=== PATIENT | female | born 1975 | race Caucasian/White ===

== ENCOUNTER 2023-05-25 12:30 | Outpatient (AMB) | payer OTHER, SELFPAY ==
--- NOTE | 2023-05-25 12:41 | AM.OFFWIN_ITS ---
Intake Vital Signs 05/25/23 12:44 BP 100/70 Blood Pressure Location Lt brachial Position Sitting Pulse 96 Pulse Source Pulse Oximeter Temp 98.2 F Temp Source Oral Pulse Oximetry (%) 98 Oxygen Delivery Method Room Air Intake Visit Reasons: Sore throat Intake Note: Pt is here today c/o sore throat x2days Patient Tobacco Use Status: Never used Tobacco Allergies No Known Allergies Allergy (Unverified 05/25/23 12:59) Medication List - Last Reconciled 05/25/23 by Hien Fletcher CNP amitriptyline 100 mg PO BEDTIME econazole 1% appl topical BID escitalopram oxalate 10 mg PO DAILY ferrous sulfate 325 mg PO DAILY hydroxyzine HCl 25 mg PO QID lisinopril 2.5 mg PO DAILY loratadine 10 mg PO DAILY magnesium oxide 400 mg PO DAILY minoxidil 1.25 mg PO DAILY omeprazole 40 mg PO DAILY ondansetron HCl 4 mg PO Q8H PRN sumatriptan succinate 0 mg PO topiramate 50 mg PO BID vitamin B complex 1 cap PO DAILY HPI HPI Comments History of Present Illness Details 47-year-old female presents today for sick visit, complaining of sore throat x2 days. She does report history of strep throat, difficulty swallowing due to throat pain. She denies fever, chills, headache, CP, SOB, abdominal pain, nausea, vomiting, changes in bowels or bladder. [facility] Social History Patient Tobacco Use Status: Never used Tobacco Review of Systems Const All systems reviewed & are unremarkable except as noted in HPI and below Physical Exam Vital Signs: Last Vital Signs Temp 98.2 F 05/25/23 12:44 Pulse 96 05/25/23 12:44 BP 100/70 05/25/23 12:44 Pulse Ox 98 05/25/23 12:44 Oxygen Delivery Method Room Air 05/25/23 12:44 Const General: healthy appearing and no acute distress Nutritional Appearance: well nourished Orientation/consciousness: patient oriented x3 Limitations: no limitations HEENT Head: Yes normocephalic and Yes atraumatic Ears: hearing grossly normal bilaterally and TM's normal bilaterally Mouth: moist mucous membranes Throat: Yes posterior oropharynx abnormal (erythematous w/ white papules ) Neck Neck: Yes no meningeal signs and Yes lymphadenopathy (bilateral submandibular ) Resp Effort & Inspection: normal respiratory effort, no cough, no respiratory distress and not tachypneic Auscultation: clear to auscultation bilaterally Cardio Rate: regular rate Rhythm: regular rhythm Heart sounds: S1 normal heart sound present and S2 normal heart sound present Peripheral pulses: Peripheral pulses 2+ throughout GI Inspection: Yes normal to inspection Palpation (GI): Soft to palpation and nontender Auscultation: normal bowel sounds Neuro General: patient oriented x3, gait normal, moves all extremities and no meningeal signs Cranial nerves: No Ability to bilaterally rotate head present Extrem General: Yes normal to inspection, Yes capillary refill normal and Yes no clubbing, cyanosis or edema Psych Appearance: well kempt Mental Status: mental status grossly normal Speech and movement: Normal speech and movement present Affect: normal affect Attitude: cooperative Results AMB Rapid Strep AMB Rapid Strep Negative Last Edit by Laurita Maza CMA on 05/25/23 12:52 Results Reviewed Results Reviewed: Laboratory Last Values Strep Scn Rapid Clinic Negative 05/25/23 12:49 Assessment & Plan Assessment & Plan (1) Sore throat: Code(s): J02.9 - Acute pharyngitis, unspecified Plan: 47-year-old female seen today for complaint of sore throat and difficulty swallowing due to pain. She does have a history of strep throat. Rapid strep negative, Binax[facility] rapid covid test negative posterior orophyarngeal erythematous w/ white papules; +bilateral submandibular lymphadenopathy Will treat with PCN 500 mg po bid x 7 days, encouraged to take w/ food. Warm salt water gargles, cool liquids, jello and popsicles Return to office for worsening or unresolved symptoms Orders: Orders [facility] Covid-19 Ag Today J02.9 - Acute pharyngitis, unspecified AMB Rapid Strep Screen Today Z13.9 - Encounter for screening, unspecified AMB Rapid Strep Screen Today J02.9 - Acute pharyngitis, unspecified, Z13.9 - Encounter for screening, unspecified Medications: New penicillin V potassium 500 mg PO BID 14 tabs 0RF J02.0 - Streptococcal pharyngitis, J02.9 - Acute pharyngitis, unspecified Coding Level of Care Code Est Pt Level 3 (13709) Diagnoses Sore throat J02.9
[2023-05-25 12:44] VITALS: BP 100/70; PULSE 96; TEMP 36.8; O2SAT 98
== END 2023-05-25 13:56 | disposition home or self-care (01) ==
PROVIDERS: PCP Internal Medicine; Visit Provider Nurse Practitioner Acute Care
DX: J02.9 Acute pharyngitis, unspecified (principal)
CPT/HCPCS: 87880; 99051; 99213

== ENCOUNTER 2023-05-25 13:20 | Outpatient (REF) | payer OTHER, SELFPAY ==
[2023-05-25 13:42] LABS: Binax Internal Control QC Valid; Binax Now Covid-19 Ag Negative (Negative); Binax Performed by: PAULP
== END 2023-05-25 13:21 | disposition home or self-care (01) ==
LOC: HO.HMGCLDS 13:20
PROVIDERS: PCP Internal Medicine; Visit Provider Nurse Practitioner Acute Care
DX: J02.9 Acute pharyngitis, unspecified (principal); Z20.822 Contact with and (suspected) exposure to COVID-19
CPT/HCPCS: 87811; C9803

== ENCOUNTER 2025-01-07 15:06 | Emergency (ER) | payer OTHER, SELFPAY ==
--- NOTE | ~2025-01-07 | CT_ITS ---
CLINICAL HISTORY: headache CT head without contrast Comparison: None Findings: No intra-axial mass, midline shift, hydrocephalus, or acute hemorrhage. No significant atrophy-like change or white matter disease. Large mucous retention cyst within the left maxillary sinus. No air-fluid levels. The orbits are within normal limits. No skull fracture. IMPRESSION: 1. No acute intracranial findings. This document has been electronically signed by: Casandra Becerril MD on 01/07/2025 17:08:23
[2025-01-07 15:56] VITALS: BP 126/84; PULSE 81; RESP 16; TEMP 36.8; O2SAT 100; BMI 22.9
--- NOTE | 2025-01-07 15:57 | ED_ITS ---
HPI - Headache General Chief Complaint: Headache Stated Complaint: headache,head numbness Time Seen by Provider: 01/07/25 20:35 Source: patient Mode of arrival: ambulatory Limitations: no limitations History of Present Illness ED Provider: HPI Narrative: Patient's history of migraine headaches in the past noticed sharp shooting pain in the left temporal occipital area for last 2 days with sound sensitivity no fever no chills no head injury no neck pain had slight nausea no vomiting Related Data Home Medications ?Medication ?Instructions ?Recorded ?Confirmed amitriptyline 100 mg tablet 100 mg PO BEDTIME 05/25/23 econazole nitrate 1 % topical cream appl topical BID 05/25/23 escitalopram oxalate 10 mg tablet 10 mg PO DAILY 05/25/23 ferrous sulfate 325 mg (65 mg 325 mg PO DAILY 05/25/23 iron) tablet,delayed release hydroxyzine HCl 25 mg tablet 25 mg PO QID 05/25/23 lisinopril 2.5 mg tablet 2.5 mg PO DAILY 05/25/23 loratadine 10 mg tablet 10 mg PO DAILY 05/25/23 magnesium oxide 400 mg (241.3 mg 400 mg PO DAILY 05/25/23 magnesium) tablet minoxidil 2.5 mg tablet 1.25 mg PO DAILY 05/25/23 omeprazole 40 mg capsule,delayed 40 mg PO DAILY 05/25/23 release ondansetron HCl 4 mg tablet 4 mg PO Q8H PRN nausea 05/25/23 sumatriptan succinate 100 mg tablet 0 mg PO 05/25/23 topiramate 50 mg tablet 50 mg PO BID 05/25/23 vitamin B complex 1 cap PO DAILY 05/25/23 Previous Rx's ?Medication ?Instructions ?Recorded penicillin V potassium 500 mg 500 mg PO BID #14 tabs 05/25/23 tablet [id number]-[id number]-fclfysuw 1 tab PO Q6H PRN haeadace #20 tabs 01/07/25 50 mg-325 mg-40 mg tablet Allergies Allergy/AdvReac Type Severity Reaction Status Date / Time No Known Allergies Allergy Verified 01/07/25 15:59 Review of Systems 2 Review of Systems: Yes all other systems are reviewed and are negative PMFSH Social History Social History Patient Tobacco Use Status: Never used Tobacco Smoked in Last 30 Days: No Use of substances other than those prescribed or required for medical reasons: Yes Substance Use Type: Marijuana Substance Use Frequency: Daily Last Used Substance: Hours (ago) Any prior treatment program specific to substance use: No Advance Directives: No Advance Directives Information Provided: Yes Do you have a plan to hurt others: No Plan Patient : No Physical Exam 2 Vital Signs: Vital Signs: Last Vital Signs Temp 98.1 F 01/07/25 21:57 Pulse 66 01/07/25 21:57 Resp 16 01/07/25 21:57 BP 128/78 01/07/25 21:57 Pulse Ox 98 01/07/25 21:57 O2 Del Method Room Air 01/07/25 21:57 BMI result Body Mass Index 22.9 Appearance: Alert. Oriented X3. No acute distress. Eyes: No pallor or icterus HEENT: Pharynx normal. Oral Mucosa moist no left temporal artery tenderness, diffuse left-sided scalp tenderness no rash Neck: Normal inspection. Neck supple. CVS: Normal heart rate and rhythm. Pulses normal. Respiratory: No respiratory distress. Equal air entry bilateral, no wheezing/rales/rhonchi Abdomen: Soft and nontender. Bowel sounds are present, no mass palpable, no CVA tenderness Skin: Skin warm and dry. Normal skin color. Normal skin turgor. Extremities: No lower extremity edema. No calf tenderness Neuro: Oriented X 3. No motor deficit. No sensory deficit.No cerebellar signs , cranial nerves II-XII intact Course Course Course Narrative: This is an RME: Additional HPI, ROS, PE not included below will be deferred to primary provider. RME assessment and note performed by: Sury Zepeda PA-C This is [id number]-female, with a hx of migraines, thyroidectomy in 2023, HTN, HLD, who presents to the ER with complaints of headache. Reports that she has sensitivity to her scalp, and has had intermittent sharp sensation on the left side of her scalp. Denies history of similar symptoms. She is neurologically intact. Plan: Labs, CT head Medications Administered Discontinued Medications Generic Name Dose Route Start Last Admin Trade Name Freq PRN Reason Stop Dose Admin Acetaminophen/Butalbital/Caffeine 1 tab 01/07/25 21:01 01/07/25 21:10 Butalb/Acetamin/Caff 50/325/40 Tablet PO 01/07/25 21:02 1 tab ONCE ONE Administration Medical Decision Making Medical Decision Making MDM Narrative: Patient with left temporal headache no tenderness at temporal artery no rash CT scan negative labs are stable normal sed rate likely has a complex migraine headache will prescribe Fioricet Lab Data MDM Lab Attestation statement: I reviewed the patient's lab results. 01/07/25 16:54 01/07/25 16:54 Labs: Lab Results 01/07/25 Range/Units 16:54 WBC 7.9 (4.8-10.8) X10*3/uL RBC 4.61 (4.20-5.50) X10*6/uL Hgb 14.5 (12.0-16.0) g/dl Hct 41.9 (37.0-47.0) % MCV 90.9 (80.0-98.0) fL MCH 31.5 (27.0-33.0) pg MCHC 34.6 (31.0-35.0) g/dl RDW 12.6 (11.0-16.0) % Plt Count 382 (160-400) X10*3/uL MPV 9.7 (9.4-12.3) fL Immature Gran % (Auto) 0.4 (0.0-0.4) % Neut % (Auto) 56.5 (45-73) % Lymph % (Auto) 29.3 (20-40) % [place] % (Auto) 11.1 H (2-11) % Eos % (Auto) 1.9 (0-4) % Baso % (Auto) 0.8 (0-2) % Lymph # (Auto) 2.3 (1.2-4.9) X10*3/uL [place] # (Auto) 0.9 (0.1-1.2) X10*3/uL Eos # (Auto) 0.2 (0.0-0.4) X10*3/uL Baso # (Auto) 0.1 (0.0-0.2) X10*3/uL Abs Immat Gran (auto) 0.03 (0.00-0.03) X10*3/uL Absolute Neuts (auto) 4.5 (2.0-8.3) x10*3/uL Absolute Nucleated RBC 0.000 (0.0-0.012) X10*3/uL Nucleated RBC % (auto) 0.0 (0.0-0.2) /100WBC ESR 9 (0-20) MM/HR Sodium 141 (135-145) mmol/L Potassium 3.7 (3.3-5.1) mmol/L Chloride 111 H (96-108) mmol/L Carbon Dioxide 23 (22-29) mmol/L Anion Gap 11 L (12-20) BUN 11 (9-16) mg/dL Creatinine 0.93 (0.5-1.4) mg/dL Estim Creat Clear Calc 63.8 Estimated GFR > 60 Random Glucose 94 (60-115) mg/dL Calcium 9.2 (8.4-10.2) mg/dL Total Bilirubin 0.2 (0.0-1.0) mg/dL Direct Bilirubin < 0.2 (0.0-0.5) mg/dL AST 18 (5-31) U/L ALT 14 (0-31) U/L Alkaline Phosphatase 54 (39-117) U/L C-Reactive Protein 0.12 (< or = 0.50) mg/dL Total Protein 7.7 (6.5-8.0) g/dL Albumin 4.0 (3.5-5.0) g/dL Independent Interpretation I performed an independent interpretation of an: CT Scan Radiology Impression Discussion of test interpretation with radiology: I have reviewed the radiologist's reading. Radiologist Impression: NAD Discharge Plan Discharge Clinical Impression: Migraine Patient Disposition: Home, Self-Care Instructions: Migraine Headache (ED) Additional Instructions: Likely have complex migraine headache Take Fioricet as needed for headache Follow up with your PCP Prescriptions: New ilwoomvfka-fbetvgaaofkoq-crhn 50-325-40 mg tablet 1 tab PO Q6H PRN (Reason: haeadace) Qty: 20 0RF No Action ferrous sulfate 325 mg (65 mg iron) tablet,delayed release (DR/EC) 325 mg PO DAILY minoxidil 2.5 mg tablet 1.25 mg PO DAILY loratadine 10 mg tablet 10 mg PO DAILY sumatriptan succinate 100 mg tablet 0 mg PO omeprazole 40 mg capsule,delayed release(DR/EC) 40 mg PO DAILY hydroxyzine HCl 25 mg tablet 25 mg PO QID magnesium oxide 400 mg (241.3 mg magnesium) tablet 400 mg PO DAILY vitamin B complex Capsule 1 cap PO DAILY lisinopril 2.5 mg tablet 2.5 mg PO DAILY topiramate 50 mg tablet 50 mg PO BID escitalopram oxalate 10 mg tablet 10 mg PO DAILY amitriptyline 100 mg tablet 100 mg PO BEDTIME ondansetron HCl 4 mg tablet 4 mg PO Q8H PRN (Reason: nausea) econazole nitrate 1 % cream topical BID penicillin V potassium 500 mg tablet 500 mg PO BID Qty: 14 0RF Interventions: ED Discharge Assessment Last Done: 01/07/25 22:05 Print Language: Panamanian
[2025-01-07 17:03] LABS: MANUAL DIFF FLAG NO
[2025-01-07 17:14] LABS: Basophils Absolute Auto 0.1 X10*3/uL (0.0-0.2); Basophils Percent Auto 0.8 % (0-2); Eosinophils Absolute Auto 0.2 X10*3/uL (0.0-0.4); Eosinophils Percent Auto 1.9 % (0-4); Hematocrit 41.9 % (37.0-47.0); Hemoglobin 14.5 g/dl (12.0-16.0); Imm Gran Abs Auto 0.03 X10*3/uL (0.00-0.03); Imm Gran Pct Auto 0.4 % (0.0-0.4); Lymphocytes Absolute Auto 2.3 X10*3/uL (1.2-4.9); Lymphocytes Percent Auto 29.3 % (20-40); Mean Corpuscular HGB Conc 34.6 g/dl (31.0-35.0); Mean Corpuscular Hemoglobin 31.5 pg (27.0-33.0); Mean Corpuscular Volume 90.9 fL (80.0-98.0); Mean Platelet Volume 9.7 fL (9.4-12.3); Monocytes Absolute Auto 0.9 X10*3/uL (0.1-1.2); Monocytes Percent Auto 11.1 % (2-11); Neutrophils Absolute Auto 4.5 x10*3/uL (2.0-8.3); Neutrophils Percent Auto 56.5 % (45-73); Platelet Count 382 X10*3/uL (160-400); Red Blood Count 4.61 X10*6/uL (4.20-5.50); Red Cell Distribution Width 12.6 % (11.0-16.0); White Blood Count 7.9 X10*3/uL (4.8-10.8)
[2025-01-07 17:36] LABS: Alanine Aminotransferase 14 U/L (0-31); Alkaline Phosphatase 54 U/L (39-117); Anion Gap 11 (12-20); Aspartate Amino Transferase 18 U/L (5-31); Bilirubin Direct < 0.2 mg/dL (0.0-0.5); Bilirubin Total 0.2 mg/dL (0.0-1.0); Blood Urea Nitrogen 11 mg/dL (9-16); C Reactive Protein 0.12 mg/dL (< or = 0.50); Calcium 9.2 mg/dL (8.4-10.2); Carbon Dioxide 23 mmol/L (22-29); Chloride 111 mmol/L (96-108); Creatinine Clr Calc Pharmacy 63.8; Estimated Glomerular Filt Rate > 60; Glucose Random 94 mg/dL (60-115); Potassium 3.7 mmol/L (3.3-5.1); Sodium 141 mmol/L (135-145); Total Protein 7.7 g/dL (6.5-8.0)
[2025-01-07 18:36] LABS: Erythrocyte Sedimentation Rate 9 MM/HR (0-20)
[2025-01-07 19:48] VITALS: BP 142/79; PULSE 81; RESP 16; TEMP 36.7; O2SAT 100
[2025-01-07] MEDS: Butalb/Acetamin/Caff 50/325/40 TABLET 1 TAB PO (21:10)
[2025-01-07 21:57] VITALS: BP 128/78; PULSE 66; RESP 16; TEMP 36.7; O2SAT 98
[2025-01-07 22:05] VITALS: BP 128/78; PULSE 66; RESP 16; TEMP 36.7; O2SAT 98
== END 2025-01-07 22:06 | disposition home or self-care (01) ==
PROVIDERS: Physician Assistant Medical; Emergency Provider Internal Medicine; PCP Internal Medicine
DX: G43.909 Migraine, unspecified, not intractable, without status migrainosus (principal); I10 Essential (primary) hypertension; E78.5 Hyperlipidemia, unspecified; Z79.899 Other long term (current) drug therapy
CPT/HCPCS: 36415; 70450; 80048; 80076; 85025; 85652; 86140; 99284

== ENCOUNTER → 2025-01-07 16:06 | Outpatient (BNV) | payer OTHER, SELFPAY | PROVIDERS: PCP Internal Medicine; Visit Provider Radiology Diagnostic Radiology | DX: R51.9 Headache, unspecified (principal) | CPT/HCPCS: 70450 ==

== ENCOUNTER 2025-08-15 07:03 | Emergency (ER) | payer OTHER, SELFPAY ==
--- NOTE | ~2025-08-15 | CT_ITS ---
CLINICAL HISTORY: RLQ pain, right flank pain CT abdomen and pelvis with contrast Comparison: CT - CT ABDOMEN PELVIS W IV CON - 08/15/25 08:36 EDT Findings: The lung bases are clear. There is a hepatic cysts within segment 6. The gallbladder, spleen, adrenal glands and pancreas are unremarkable. Kidneys, ureters and bladder are normal. Well-positioned IUD. The uterus and adnexa are unremarkable. Normal appendix. No bowel obstruction or free air. No acute osseous finding. Impression: No definite acute process. Normal appendix. No obstructive uropathy. This document has been electronically signed by: Heladio Mario MD on 08/15/2025 10:50:55
[2025-08-15 07:07] VITALS: BP 188/98; PULSE 88; RESP 18; TEMP 36.4; O2SAT 100; BMI 22.3
[2025-08-15 07:29] LABS: MANUAL DIFF FLAG NO
--- OUTSIDE RECORDS SUMMARY | 2025-08-15 07:30 | XMS_ITS | Data Portability ---
Author Organization [place] - [facility],, MCKENNA BENITEZ MD Address [address] [address] Care Team Providers Care Head Inspector Name Role Phone [facility] Primary Care Pro vider Assessment No assessment recorded. Plan of Treatment Reminders Order Date Submit Date Provider Last Modified By Organization Details Last Modified Time Details Appointments SPECIAL PROCEDURE 2025 09:20A M Mckenna Benitez MD Not available Not available Not available Lab test, urine 2024 025 [email or web address] 1 In-Office Order, Internal Use Only DO Not Attach Compendium DO Not Attach Compendium, Do Not Delete/merge, [id number] 06/22/2025 09:57:32 cytology report, thin prep, smear or scraping, cervical or vaginal 2024 025 [facility] (Centralized Electronic Ordering - All Locations), Patient Can Go To The Location Of Their Choice, [id number] 05/25/2025 16:16:04 hemoglobi n, gastroint estinal, stool 2024 025 [email or web address] 1 In-Office Order, Internal Use Only DO Not Attach Compendium DO Not Attach Compendium, Do Not Delete/merge, [id number] 05/18/2025 14:02:45 urinalysi s, dipstick 2023 024 [email or web address] 1 In-Office Order, Internal Use Only DO Not Attach Compendium DO Not Attach Compendium, Do Not Delete/merge, [id number] 10/02/2024 11:08:50 culture, urine 2023 024 [facility] (Centralized Electronic Ordering - All Locations), Patient Can Go To The Location Of Their Choice, [id number] 10/04/2024 00:05:10 wet mount, vaginal 2023 024 [email or web address] 1 In-Office Order, Internal Use Only DO Not Attach Compendium DO Not Attach Compendium, Do Not Delete/merge, [id number] 10/02/2024 11:08:50 CT + NG DNA, PCR, cervical 2023 024 [employer] [facility], [address], [address], [place], [address], 10/09/2024 07:24:37 test, urine 2023 024 [email or web address] 1 In-Office Order, Internal Use Only DO Not Attach Compendium DO Not Attach Compendium, Do Not Delete/merge, [id number] 10/02/2024 11:08:50 cytology report, thin prep, smear or scraping, cervical or vaginal 2023 024 [place] (Centralized Electronic Ordering - All Locations), Patient Can Go To The Location Of Their Choice, [id number] 03/17/2024 16:06:17 hemoglobi n, gastroint estinal, stool 2023 024 [email or web address] 1 In-Office Order, Internal Use Only DO Not Attach Compendium DO Not Attach Compendium, Do Not Delete/merge, [id number] 03/11/2024 09:21:51 Referral None recorded. Procedures colposcop y of cervix and vagina (PROC) 2024 025 [email or web address] 1 In-Office Order, Internal Use Only DO Not Attach Compendium DO Not Attach Compendium, Do Not Delete/merge, [id number] 06/22/2025 09:57:32 applicati on of trichloro acetic acid (PROC) 2023 024 [email or web address] In-Office Order, Internal Use Only DO Not Attach Compendium DO Not Attach Compendium, Do Not Delete/merge, [id number] 08/31/2024 07:16:55 Surgeries None recorded. Imaging MAMMO, screening , digital, bilateral - Breast Aspiratio n and/or Biopsy if needed 2024 025 [facility] ([facility]), [address] [facility] [address], [place], [address], 05/18/2025 14:20:04 MAMMO, screening , digital, bilateral - Breast Aspiratio n and/or Biopsy if needed 2023 024 [email or web address], [address], [address], [place], [address], 03/08/2025 07:33:36 Medication Orders fluconazo le 150 mg tablet 2023 025 [id number], [address], [place], [id number], 05/18/2025 13:39:10 Patient TargetsNo targets recorded. Patient Instructions Encounter Date Encounter Id Patient Instructions Last Modified By Organization Details Last Modified Time 03/11/2024 [id number] learning about healthy weight [email or web address] Not available 03/11/2024 09:21:51 She is here for annual, doing well, she had molluscum treated in 12/14, those resolved but ther are a few new ones, small. Her Kyleena IUD was placed 03/11. Note from 2022: She had a cervical polyp removal last year, and has not had PCB since it was removed. She also had an IUD placement in 03/11. She does not have menses anymore, due to the IUD. ___ She appears to be doing well. . Monthly self breast exam was taught, and stressed, and is advised to call if she discovers any new mass in the breast. She will return to have the molluscum treated again if they bother her, she is advised to stop shaving as that may be spreading them. [facility] Not available 03/11/2024 09:22:37 08/20/2024 [id number] She is here requesting TCA treatment for molluscum. She notes the lesions have been there for several months and getting larger and more numerous. She had stopped shaving but it did not help. She had been treated for molluscum in the past with good results, with TCA. All lesions were treated topically with TCA and blanched white. She tolerated well, was given a fan to use for comfort afterward. She rested and left without issue. [facility] Not available 08/20/2024 09:42:03 10/02/2024 [id number] urinary tract infection in women information [facility] Not available 10/02/2024 11:08:50 vaginal yeast infection: care instructions [facility] Not available 10/02/2024 11:08:50 She is here for a complaint of a yellow and green vaginal discharge for a few days. LMP was 09/09/24, she has an IUD. She is on antibiotics for a tooth abscess. She also noted midline intermittent cramping pain. U preg negative. Urine dip clear, check culture. Wet ruslan show yeast, rx diflucan. Check genprobe for pelvic pain and discharge. All questions answered, call if symptoms persist or worsen. [facility] Not available 10/02/2024 11:11:34 05/18/2025 [id number] learning about healthy weight [facility] Not available 05/18/2025 14:02:45 She is here for annual, doing well, no menses due to Kyleena IUD placed 03/11 and good until 02/2027. She has some vasomotor symptoms noted. Still has rare molluscum, small. Note from 2023: She is here for annual, doing well, she had molluscum treated in 12/14, those resolved but ther are a few new ones, small. Her Kyleena IUD was placed 03/11. __ She appears to be doing well. She is taking her son to [place] for his 31th birthday! Monthly self breast exam was taught, and stressed, and is advised to call if she discovers any new mass in the breast. [facility] Not available 05/18/2025 14:03:21 06/22/2025 [id number] colposcopy: what to expect at home [facility] Not available 06/22/2025 09:57:32 human papillomavirus (HPV): care instructions [facility] Not available 06/22/2025 09:57:32 She is here for colpo for ASCUS with positive HPV HR, she has an IUD in situ. she had the onset of molluscum last year. Her partner likely had another partner. Note from 04/2025: She is here for annual, doing well, no menses due to Kyleena IUD placed 03/11 and good until 02/2027. She has some vasomotor symptoms noted. Still has rare molluscum, small. 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 She had abnormal paps in her youth she notes but no treatment necessary. Repeat colpo in 3 months. [facility] Not available 06/22/2025 09:54:55 Reason for Referral None Reported. Results Created Date Observation Date Name Description Value Unit Range Abnormal Flag Note LastModifiedBy Organization Detail LastModifiedTime 03/11/20 24 03/17/2024 IGP, RFX APTIM A HPV ASCU diagnosis: Commen t NEGAT VILLA FOR INTRA EPITH ELIAL RYAN Monreal OR JOVANA PIKE . Not Available [facility] ([facility]) [address], [place], [address], 03/17/2024 16:06:17 03/11/20 24 03/17/2024 IGP, RFX APTIM A HPV ASCU specimen adequacy: Commen t Satis facto ry for evalu ation . Endoc ervic al and/o r squam ous metap lasti c cells (endo cervi abdi compo nent) are prese nt. Not Available [facility] ([facility]) [address], [place], [address], 03/17/2024 16:06:17 03/11/20 24 03/17/2024 IGP, RFX APTIM A HPV ASCU clinician provided ICD10: Sidra lemus Z01.4 19 Not Available [facility] ([facility]) [address] [place], [address], 03/17/2024 16:06:17 03/11/20 24 03/17/2024 IGP, RFX APTIM A HPV ASCU performed by: Sidra Acosta, Susi lemus (ASCP ) Not Available [facility] ([facility]) [address] [place], [address], 03/17/2024 16:06:17 03/11/20 24 03/17/2024 IGP, RFX APTIM A HPV ASCU . . Not Available [facility] ([facility]) [address] [place], [address], 03/17/2024 16:06:17 03/11/20 24 03/17/2024 IGP, RFX APTIM A HPV ASCU note: Sidra lemus The Pap smear is a scree aravind test desig lisa to aid in the detec tion of ronna ligna nt and malig nant condi tions of the uteri ne cervi x. It is not a diagn ostic proce dure and shoul d not be used as the sole means of detec ting cervi abdi cance r. Both false -posi tive and false -nega tive repor ts do occur . Not Available [facility] ([facility]) [address] [place], [address], 03/17/2024 16:06:17 03/11/20 24 03/17/2024 IGP, RFX APTIM A HPV ASCU test methodology: Sidra lemus This liqui d based ThinP rep(R ) pap test was scree lisa with the use of an image guide d syste m. Not Available [facility] ([facility]) [address], [place], [address], 03/17/2024 16:06:17 03/11/20 24 03/17/2024 IGP, RFX APTIM A HPV ASCU . Commen t The HPV DNA refle x crite gunner were not met with this speci men resul t there fore, no HPV testi ng was perfo rmed. Not Available [facility] ([facility]) [address], [place], [address], 03/17/2024 16:06:17 03/11/20 24 03/11/2024 hemog lobin , gastr ointe chris l, stool Occult Blood negati ve Not Available In-Office Order Internal Use Only DO Not Attach Compendium DO Not Attach Compendium, Do Not Delete/merge, [id number] 03/11/2024 09:01:02 10/02/20 24 10/03/2024 URINE CULTU RE, ROUTI NE urine culture, routine Final report Not Available [facility] ([facility]) [address], [place], [address], 10/04/2024 00:05:10 10/02/20 24 10/03/2024 URINE CULTU RE, ROUTI NE result 1 No growth Not Available [facility] ([facility]) [address] [place], [address], 10/04/2024 00:05:10 10/02/20 24 10/06/2024 CHLAM YDIA/ GC AMPLI FICAT ION chlamydia trachomatis, MARISELA Negati ve negati ve Not Available [facility] ([facility]) [address] [place], [address], 10/06/2024 10:06:27 10/02/20 24 10/06/2024 CHLAM YDIA/ GC AMPLI FICAT ION neisseria gonorrhoeae, MARISELA Negati ve negati ve Not Available [facility] ([facility]) [address] [place], [address], 10/06/2024 10:06:27 10/02/20 24 10/02/2024 wet mount reinaldo Clue Cells negati ve Not Available In-Office Order Internal Use Only DO Not Attach Compendium DO Not Attach Compendium, Do Not Delete/merge, [facility] 10/02/2024 11:07:06 10/02/20 24 10/02/2024 wet mount reinaldo Trichomonas negati ve Not Available In-Office Order Internal Use Only DO Not Attach Compendium DO Not Attach Compendium, Do Not Delete/merge, [facility] 10/02/2024 11:07:06 10/02/20 24 10/02/2024 wet mount reinaldo Hyphae positi ve Not Available In-Office Order Internal Use Only DO Not Attach Compendium DO Not Attach Compendium, Do Not Delete/merge, [facility] 10/02/2024 11:07:06 10/02/20 24 10/02/2024 wet mount reinaldo al atrophic epithelium negati ve Not Available In-Office Order Internal Use Only DO Not Attach Compendium DO Not Attach Compendium, Do Not Delete/merge, [facility] 10/02/2024 11:07:06 10/02/20 24 10/02/2024 pregn diana test, urine HCG negati ve Not Available In-Office Order Internal Use Only DO Not Attach Compendium DO Not Attach Compendium, Do Not Delete/merge, [facility] 10/02/2024 11:00:18 10/02/20 24 10/02/2024 urina lysis , dipst ick GLU Negati ve Not Available In-Office Order Internal Use Only DO Not Attach Compendium DO Not Attach Compendium, Do Not Delete/merge, [id number] 10/02/2024 10:58:53 10/02/20 24 10/02/2024 urina lysis , dipst ick NEREYDA Small Not Available In-Office Order Internal Use Only DO Not Attach Compendium DO Not Attach Compendium, Do Not Delete/merge, [id number] 10/02/2024 10:58:53 10/02/20 24 10/02/2024 urina lysis , dipst ick KET Negati ve Not Available In-Office Order Internal Use Only DO Not Attach Compendium DO Not Attach Compendium, Do Not Delete/merge, 10/02/2024 10:58:53 10/02/20 24 10/02/2024 urina lysis , dipst ick SG 1.025 Not Available In-Office Order Internal Use Only DO Not Attach Compendium DO Not Attach Compendium, Do Not Delete/merge, 10/02/2024 10:58:53 10/02/20 24 10/02/2024 urina lysis , dipst ick BLO Negati ve Not Available In-Office Order Internal Use Only DO Not Attach Compendium DO Not Attach Compendium, Do Not Delete/merge, 10/02/2024 10:58:53 10/02/20 24 10/02/2024 urina lysis , dipst ick pH 6.5 Not Available In-Office Order Internal Use Only DO Not Attach Compendium DO Not Attach Compendium, Do Not Delete/merge, 10/02/2024 10:58:53 10/02/20 24 10/02/2024 urina lysis , dipst ick PRO Negati ve Not Available In-Office Order Internal Use Only DO Not Attach Compendium DO Not Attach Compendium, Do Not Delete/merge, 10/02/2024 10:58:53 10/02/20 24 10/02/2024 urina lysis , dipst ick URO 0.2 E.U. / dl Not Available In-Office Order Internal Use Only DO Not Attach Compendium DO Not Attach Compendium, Do Not Delete/merge, 10/02/2024 10:58:53 10/02/20 24 10/02/2024 urina lysis , dipst ick NIT negati ve Not Available In-Office Order Internal Use Only DO Not Attach Compendium DO Not Attach Compendium, Do Not Delete/merge, 10/02/2024 10:58:53 10/02/20 24 10/02/2024 urina lysis , dipst ick JUNI Negati ve Not Available In-Office Order Internal Use Only DO Not Attach Compendium DO Not Attach Compendium, Do Not Delete/merge, 10/02/2024 10:58:53 05/18/20 25 05/20/2025 IGP, RFX APTIM A HPV ASCU diagnosis: Sidra lemus abnormal EPITH ELIAL CELL ABNOR MALIT Y. ATYPI ABDI SQUAM OUS CELLS OF UNDET ERMIN ED SIGNI FICAN CE (ASC- [place]). Not Available [address], [address], 05/25/2025 16:16:04 05/18/20 25 05/20/2025 IGP, RFX APTIM A HPV ASCU specimen adequacy: Sidra lemus Satis facto ry for evalu ation . Endoc ervic al and/o r squam ous metap lasti c cells (endo cervi abdi compo nent) are prese nt. Not Available [address], [address], 05/25/2025 16:16:04 05/18/20 25 05/20/2025 IGP, RFX APTIM A HPV ASCU clinician provided ICD10: Sidra lemus Z01.4 19 Not Available [address], [address], 05/25/2025 16:16:04 05/18/20 25 05/20/2025 IGP, RFX APTIM A HPV ASCU performed by: Sidra Acosta, Cytol ogist (ASCP ) Not Available [address], [address], 05/25/2025 16:16:04 05/18/20 25 05/20/2025 IGP, RFX APTIM A HPV ASCU electronical ly signed by: Sidra lay MD, Patho logis t Not Available [address], [address], 05/25/2025 16:16:04 05/18/20 25 05/20/2025 IGP, RFX APTIM A HPV ASCU . . Not Available [address] [place], [address], 05/25/2025 16:16:04 05/18/20 25 05/20/2025 IGP, RFX APTIM A HPV ASCU pathologist provided ICD10: Sidra lemus R87.6 10 Not Available [address], [address], 05/25/2025 16:16:04 05/18/20 25 05/20/2025 IGP, RFX APTIM A HPV ASCU note: Sidra lemus The Pap smear is a scree aravind test desig lisa to aid in the detec tion of ronna ligna nt and malig nant condi tions of the uteri ne cervi x. It is not a diagn ostic proce dure and shoul d not be used as the sole means of detec ting cervi abdi cance r. Both false -posi tive and false -nega tive repor ts do occur . Not Available [address], [address], 05/25/2025 16:16:04 05/18/20 25 05/20/2025 IGP, RFX APTIM A HPV ASCU test methodology: Sidra lemus This liqui d based ThinP rep(R ) pap test was scree lisa with the use of an image guide fer ervin. Not Available [address], [address], 05/25/2025 16:16:04 05/18/20 25 05/20/2025 IGP, RFX APTIM A HPV ASCU . Sidra t See below for HPV testi ng resul ts. Not Available [address], [address], 05/25/2025 16:16:04 05/18/20 25 05/25/2025 IGP, RFX APTIM A HPV ASCU HPV aptima Positi ve negati ve abnormal This nucle ic acid ampli ficat ion test detec ts fourt een high- risk HPV types (16,1 8,31, 33,35 ,39,4 5,51, 52,56 ,58,5 9,66, 68) witho lucía vigile bonnie elena . Not Available [address] [place], [address], 05/25/2025 16:16:04 05/18/20 25 05/18/2025 hemog lobin , gastr ointe chris l, stool Occult Blood negati ve Not Available In-Office Order Internal Use Only DO Not Attach Compendium DO Not Attach Compendium, Do Not Delete/merge, [id number] 05/18/2025 13:42:52 06/22/2006/22/2025 pregn diana test, urine HCG negati ve Not Available In-Office Order Internal Use Only DO Not Attach Compendium DO Not Attach Compendium, Do Not Delete/merge, [id number] 06/22/2025 09:42:27 Result Notes None recorded. Problems Name Problem SNOMED Code Status Onset Date Resolution Date Notes Provider Name and Address Organization Details Recorded Time Migraine 88114064 Active 2021 Hien wade [place] - [facility], 2 10:39:55 Fibromyalg ia 578311947 Active 2021 Hien wade [place] - [facility], 2 10:40:01 Postcoital bleeding 75263844 Active 2021 MD Alisson Vasquez,[address], [place], [address], [place] - [facility], 2 11:39:29 Family history of breast cancer 261493869 Active 2021 43 year old maternal aunt MD Alisson Vasquez [address], [place], [address], [place] - [facility], 2 10:11:15 Skin lesion 03970276 Active 2021 a geographic 7 mm black nevus on her mid/upper right back MD Alisson Vasquez [address], [place], [address], [place] - [facility], 2 10:11:42 Family history of cancer of colon 105150330 Active 2021 Mckenna Benitez MD [address], [place], [address], [place] - [facility], 2 15:34:22 Genital Molluscum contagiosu m 999161731 Active 2023 Mckenna Benitez MD [address], [place], [address], [place] - [facility], 4 13:47:14 Molluscum contagiosu m infection 84465016 Active 2023 Mckenna Benitez MD [address], [place], [address], [place] - [facility], 4 09:21:35 Problem Notes None recorded. Procedures Surgical History Date Name Laterality Status Provider Name and Address Organization Details Recorded Time 5 Colposcopy completed Mckenna Benitez MD [address], [place], [address], [place] - [facility], 06/22/2025 09:55:32 4 Most Recent Mammogram completed Peggy Cuadra [place] - [facility], 05/18/2025 13:42:02 4 Destroy condyloma, extensive completed Mckenna Benitez MD [address], [place], [address], [place] - [facility], 08/20/2024 09:42:26 2 IUD Insertion completed Mckenna Benitez MD [address], [place], [address], [place] - [facility], 03/20/2022 09:25:21 2 cervical polypectomy completed Mckenna Benitez MD [address] [facility],[address], [place], [address], [place] - [facility], 03/07/2022 10:08:01 Removal of thyroid completed dayne quiros [place] - [facility], 03/11/2024 09:03:56 Imaging Results None recorded. Procedure Notes None recorded. Medical Equipment None Reported. Allergies No known drug allergies Medications Name Sig Start Date Stop Date Status Note LastModified by Organization Details LastModified Time magnesium oxide 400 (240 mg) mg tabs active Not Available Not Available Not Available calcium citrate + d3 maximum 315-6.25 mg-mcg tabs active Not Available Not Available Not Available cyclobenzap rine 10 mg tablet TAKE 1 TABLET BY MOUTH ONCE DAILY AT BEDTIME NEEDED FOR SPASM 02/20 completed Not Available Not Available Not Available butalbital- acetaminoph en-caffeine 50 mg-325 mg-40 mg capsule TAKE 1 CAPSULE BY MOUTH EVERY 4 HOURS NEEDED 05/18 completed Not Available Not Available Not Available ibuprofen 800 mg tablet active Not Available Not Available Not Available amitriptyli ne 75 mg tablet TAKE 1 TABLET BY MOUTH ONCE DAILY AT BEDTIME 02/20 completed Not Available Not Available Not Available fluconazole 150 mg tablet Take 1 tablet every week by oral route for 14 days. 05/18 completed Not Available Not Available Not Available sumatriptan 100 mg tablet TAKE 1 TABLET BY MOUTH ONCE DAILY NEEDED MIGRAINE HEADACHE. MAY REPEAT DOSE AFTER 2 HOURS UP TO MAX OF 2 TABLETS A DAY active Not Available Not Available No t Available hydrocodone 5 mg-acetamin ophen 325 mg tablet TAKE 1 TABLET BY MOUTH EVERY 6 TO 8 HOURS NEEDED FOR PAIN 02/20 completed Not Available Not Available Not Available ondansetron HCl 4 mg tablet TAKE 1 TABLET BY MOUTH EVERY 8 HOURS FOR 3 DAYS NEEDED FOR NAUSEA 05/18 completed Not Available Not Available Not Available prednisone 20 mg tablet TAKE 2 TABLETS BY MOUTH DAILY FOR 7 DAYS 05/18 completed Not Available Not Available Not Available clindamycin HCl 150 mg capsule TAKE 1 CAPSULE BY MOUTH 4 TIMES DAILY 02/20 completed Not Available Not Available Not Available penicillin V potassium 500 mg tablet TAKE 1 TABLET BY MOUTH TWICE DAILY 08/05 completed Not Available Not Available Not Available sulfamethox azole 800 mg-trimetho prim 160 mg tablet TAKE 1 TABLET BY MOUTH TWICE DAILY FOR 3 DAYS 01/08 completed Not Available Not Available Not Available peg-electro lyte solution 420 gram oral solution MIX AND DRINK 240ML BY MOUTH EVERY 10 MINUTES (TAKE 1ST HALF OF PREP IN HE EVENING BEFORE PROCEDURE , 2ND HALF 6 HOURS PRIOR TO PROCEDURE ) 03/01 completed Not Available Not Available Not Available omeprazole 40 mg capsule,del ayed release TAKE 1 CAPSULE BY MOUTH TWICE DAILY active Not Available Not Available No t Available minoxidil 2.5 mg tablet TAKE 1/2 (ONE-HALF ) TABLET BY MOUTH ONCE DAILY 05/18 completed Not Available Not Available Not Available amitriptyli ne 50 mg tablet TAKE 1 TABLET BY MOUTH ONCE DAILY AT BEDTIME 02/20 completed Not Available Not Available Not Available acetaminoph en 500 mg tablet 05/18 completed Not Available Not Available Not Available butalbital- acetaminoph en-caffeine 50 mg-325 mg-40 mg tablet TAKE 1 TABLET BY MOUTH EVERY 6 HOURS NEEDED HEADACHE active Not Available Not Available No t Available amoxicillin 500 mg tablet 05/18 completed Not Available Not Available Not Available levothyroxi ne 100 mcg tablet TAKE 1 TABLET BY MOUTH DAILY 05/18 completed Not Available Not Available Not Available amoxicillin 875 mg tablet TAKE 1 TABLET BY MOUTH TWICE DAILY FOR 7 DAYS 08/05 completed Not Available Not Available Not Available amitriptyli ne 25 mg tablet TAKE 1 TABLET BY MOUTH ONCE DAILY AT BEDTIME 02/20 completed Not Available Not Available Not Available magnesium oxide 400 mg (241.3 mg magnesium) tablet TAKE 1 TABLET BY MOUTH DAILY active Not Available Not Available No t Available econazole nitrate 1 % topical cream APPLY CREAM TOPICALLY TWICE DAILY TO RASH ON FEET FOR 3 WEEKS 12/05 completed Not Available Not Available Not Available levothyroxi ne 125 mcg tablet TAKE 1 TABLET BY MOUTH DAILY active Not Available Not Available No t Available docusate sodium 100 mg capsule TAKE 1 CAPSULE BY MOUTH THREE TIMES DAILY active Not Available Not Available No t Available omeprazole 20 mg capsule,del ayed release TAKE 1 CAPSULE BY MOUTH ONCE DAILY 08/05 completed Not Available Not Available Not Available clindamycin 2 % vaginal cream INSERT 1 APPLICATO RFUL VAGINALLY EVERY DAY AT BEDTIME FOR 7 DAYS 10/07 completed Not Available Not Available Not Available hydroxyzine HCl 25 mg tablet TAKE 1 TABLET BY MOUTH FOUR TIMES DAILY NEEDED FOR ITCHING active Not Available Not Available No t Available lisinopril 5 mg tablet TAKE 1 TABLET BY MOUTH DAILY active Not Available Not Available No t Available zolpidem 5 mg tablet TAKE 1 TABLET BY MOUTH ONCE DAILY AT BEDTIME FOR SLEEP STUDY AND MAY TAKE SECOND TABLET AFTER 1 HOUR IF NEEDED 01/08 completed Not Available Not Available Not Available ferrous sulfate 325 mg (65 mg iron) tablet,noé yed release TAKE 1 TABLET BY MOUTH ONCE DAILY active Not Available Not Available No t Available fluticasone propionate 50 mcg/actuati on nasal spray,suspe nsion USE 2 SPRAY(S) IN EACH NOSTRIL ONCE DAILY IN THE MORNING active Not Available Not Available No t Available amitriptyli ne 100 mg tablet TAKE 1 TABLET BY MOUTH DAILY AT BEDTIME active Not Available Not Available No t Available lisinopril 2.5 mg tablet TAKE 1 TABLET BY MOUTH DAILY 11/27 completed Not Available Not Available Not Available loratadine 10 mg tablet TAKE 1 TABLET BY MOUTH ONCE DAILY active Not Available Not Available No t Available vitamin B complex capsule TAKE 1 CAPSULE BY MOUTH DAILY active Not Available Not Available No t Available levothyroxi ne 112 mcg tablet TAKE 1 TABLET BY MOUTH DAILY active Not Available Not Available No t Available oxycodone 5 mg tablet TAKE 1 TABLET BY MOUTH EVERY 6 HOURS NEEDED FOR PAIN 08/20 completed Not Available Not Available Not Available escitalopra m 10 mg tablet TAKE 1 TABLET BY MOUTH DAILY active Not Available Not Available No t Available escitalopra m 20 mg tablet TAKE 1 TABLET BY MOUTH DAILY active Not Available Not Available No t Available cyclobenzap rine 5 mg tablet TAKE 1 TABLET BY MOUTH THREE TIMES DAILY FOR 10 DAYS 10/07 completed Not Available Not Available Not Available Prilosec OTC 20 mg tablet,noé yed release TAKE 1 TABLET BY MOUTH ONCE DAILY 02/20 completed Not Available Not Available Not Available topiramate 50 mg tablet TAKE 1 TABLET BY MOUTH TWICE DAILY active Not Available Not Available No t Available tizanidine 2 mg capsule TAKE 1 CAPSULE BY MOUTH THREE TIMES DAILY FOR 14 DAYS NEEDED FOR MUSCLE SPASM active Not Available Not Available No t Available calcium 315 mg (as citrate)-vi tamin D3 6.25 mcg (250 unit) tablet TAKE 1 TABLET BY MOUTH TWICE DAILY active Not Available Not Available No t Available butalbital- acetaminoph en-caffeine 50 mg-300 mg-40 mg capsule TAKE 1 CAPSULE BY MOUTH EVERY 4 HOURS NEEDED . DO NOT EXCEED 6 CAPSULES PER DAY 05/18 completed Not Available Not Available Not Available Kyleena 17.5 mcg/24 hr (up to 5 years) 19.5 mg intrauterin e device Take 1 device every day by intrauter ine route for 1 day. 2021 active Not Available Not Available Not Avai lable Vitals Date Recorded Body height Body mass index (BMI) Body weight Heart rate Body temperature Systolic And Diastolic Provider Name and Address Organization Details Last Updated DateTime 4 162.56 cm 24.6 kg/m2 52674.8 6 g 109 /min 98.2 [degF] 144/92 mm[Hg] dayne Glez in [facility], 4 09:01:58 Date Recorded Body height Body mass index (BMI) Body weight Body temperature Heart rate Systolic And Diastolic Provider Name and Address Organization Details Last Updated DateTime 5 161.29 cm 23.7 kg/m2 59695.2 8 g 98 [degF] 86 /min 155/97 mm[Hg] Peggy Glez in [facility], 5 13:38:02 Date Recorded Body height Body mass index (BMI) Body weight Heart rate Systolic And Diastolic Provider Name and Address Organization Details Last Updated DateTime 06/22/2025 161.29 cm 23.6 kg/m2 60502.69 g 71 /min 103/62 mm[Hg] Peggy Glez in [facility], 06/22/2025 09:33:33 Date Recorded Body height Heart rate Body mass index (BMI) Body weight Systolic And Diastolic Provider Name and Address Organization Details Last Updated DateTime 08/20/2024 162.56 cm 85 /min 24.7 kg/m2 10775.3 g 128/75 mm[Hg] Peggy Glez in [facility], 08/20/2024 09:23:38 Date Recorded Body height Body mass index (BMI) Body weight Body temperature Heart rate Systolic And Diastolic Provider Name and Address Organization Details Last Updated DateTime 4 162.56 cm 24.1 kg/m2 01361.0 9 g 97.2 [degF] 80 /min 133/90 mm[Hg] Peggy Cuadra [place] - [facility], 4 10:41:46 Social History Question Answer Notes LastModified by Organizat ion Details LastModified Time Tobacco Smoking Status Former Smoker quit 20 years ago Hien wade MA - [facility], 02/20/2022 10:41:31 What Is Your Level Of Caffeine Consumption? Occasional Rare Information not available 02/20/2022 In The 14 Days Before Symptom Onset, Have You Had Close Contact With A Laboratory-confir med COVID-19 While That Case Was Ill? No Information not available 02/20/2022 In The 14 Days Before Symptom Onset, Have You Had Close Contact With A Person Who Is Under Investigation For COVID-19 While That Person Was Ill? No Information not available 02/20/2022 Have You Been To An Area Known To Be High Risk For COVID-19? No Information not available 02/20/2022 Which Illicit Or Recreational Drugs Have You Used? Marijuana Information not available 05/18/2025 What Is The Highest Grade Or Level Of School You Have Completed Or The Highest Degree You Have Received? [id number] Information not available 02/20/2022 Who Is Your Employer? [employer] Information not available 02/20/2022 Are There Any Guns Present In Your Home? No Information not available 02/20/2022 To Which Gender Do You Self-identify? Female Information not available 02/20/2022 What Was The Date Of Your Most Recent Tobacco Screening? 06/22/2025 Information not available 06/22/2025 What Is Your Relationship Status? Information not available 05/18/2025 Are You Sexually Active? Yes Not At The Moment Information not available 05/18/2025 At What Age Did You Start Smoking Tobacco? 15 Information not available 03/07/2022 How Many Years Have You Smoked Tobacco? 7 Information not available 03/07/2022 Sex: Female Functional Status Question Answer Note LastModified by Organizat ion Details LastModified Time Do you use any illicit or recreational drugs? Yes Information not available 05/18/2025 Do you or have you ever used any other forms of tobacco or nicotine? No Information not available 02/20/2022 What is your level of alcohol consumption? None rare Information not available 01/08/2023 Are you currently employed? Yes Information not available 02/20/2022 What is your occupation? R[employer] a [employer] Information not available 02/20/2022 What is your exercise level? Occasional Information not available 02/20/2022 Mental Status Question Answer Note LastModified by Organization D etails LastModified Time Do you feel stressed (tense, restless, nervous, or anxious, or unable to sleep at night)? [id number] Information not available 05/18/2025 Family History Relationship Description Onset Age of this Age Resolved Age Notes LastModified by Organization Details LastModified Time Maternal Aunt Malignant neoplasm of breast 42 Not available 2021 10:40:27 Mother Multiple sclerosis 68 [email or web address] Not available 12/2021 11:33:14 Father Malignant neoplasm of colon 80 [email or web address] Not available 2021 15:33:14 Medical History Condition Response Anesthesia complications N High Blood Pressure N Candidate for MyRisk panel N Autoimmune Condition N Depression N Lung Disease N Defects or Inherited Disease N History of Ovarian Cancer N BRCA testing in past N Anxiety Disorder N Arthritis N Infertility N History of Cancer N Endometriosis N Kidney or Bladder Problems N Thyroid Problems Y GI Problems Y Anemia N History of Breast Cancer N MERI exposure N Osteopenia N Psychiatric Illness N Diabetes N Headaches or Migraines Y Asthma N Hepatitis N Heart Disease N Hypertension N Osteoporosis N Gynecological History Statement/Question Response Flow Heavy Date of LMP 09/09/2024 Frequency of Cycle (Q days) 28 Menses Monthly Y Duration of Flow (days) Age at Menarche 14 Current Control Method IUD Most Recent Mammogram 09/23/2024 Age at First Child 20 Obstetrics History GPAL:G 1 P 1 0 0 1 Type Value Full Term 1 Living 1 Total 1 Immunizations Vaccine Type Date Status Note Provider Nam e and Address Organization Details Recorded Time COVID-19, mRNA, LNP-S, PF, 30 mcg/0.3 mL dose 1 completed JONY Sommers in [facility], 02/20/2022 10:39:33 Influenza, split virus, quadrivalent, preservative 1 completed JONY Sommers in [facility], 03/01/2023 08:39:02 influenza, unspecified formulation 2 completed JONY Sommers in [facility], 03/01/2023 08:39:02 COVID-19, mRNA, LNP-S, PF, 30 mcg/0.3 mL dose 1 completed JONY Sommers in [facility], 03/01/2023 08:39:02 COVID-19, mRNA, LNP-S, PF, 30 mcg/0.3 mL dose 1 completed JONY Sommers in [facility], 03/01/2023 08:39:02 COVID-19, mRNA, LNP-S, PF, 30 mcg/0.3 mL dose, jana-sucrose 2 completed JONY Sommers in [facility], 03/01/2023 08:39:02 pneumococcal polysaccharide PPV23 4 completed JONY Sommers in [facility], 03/01/2023 08:39:02 Tdap 0 completed JONY Sommers in [facility], 03/01/2023 08:39:02 Influenza, split virus, trivalent, preservative 3 completed JOYN Sommers in [facility], 03/01/2023 08:39:02 Influenza, split virus, trivalent, preservative 0 completed JONY Sommers in [facility], 03/01/2023 08:39:02 Influenza, split virus, trivalent, preservative 1 completed JONY Sommers in [facility], 03/01/2023 08:39:02 Influenza, split virus, trivalent, preservative 3 completed JONY Sommers in [facility], 03/01/2023 08:39:02 Influenza, split virus, trivalent, preservative 4 completed JONY Sommers in [facility], 03/01/2023 08:39:02 Influenza, split virus, trivalent, preservative 1 completed JONY Sommers in [facility], 03/01/2023 08:39:02 Influenza, split virus, trivalent, preservative 8 completed JONY Sommers in [facility], 03/01/2023 08:39:02 Influenza, split virus, quadrivalent, PF 2 completed JONY Sommers in [facility], 03/01/2023 08:39:02 Influenza, MDCK, quadrivalent, PF 3 completed Not Available [facility] 06/22/2025 09:26:43 Pneumococcal conjugate PCV20, polysaccharide CMO067 conjugate, adjuvant, PF 4 completed Not Available [facility] 06/22/2025 09:26:43 Influenza, split virus, trivalent, PF 4 completed Not Available [facility] 06/22/2025 09:26:43 Past Encounters Encounter ID Performer Location Encounter Start Date Encounter Closed Date Diagnosis/Indication Diagnosis SNOMED-CT Code Diagnosis ICD10 Code Diagnosis IMO Codes Diagnosis Note [id number] MD MCKENNA Vasquez MD [address] [facility] [address] [place] [address] 02/20/2022 10:23:28 02/21/2022 09:25:08 Postcoital bleeding 43021783 N93.0 Fibromyalgia 393159938 M 79.7 Migraine 39070718 G43.90 9 [id number] MD MCKENNA Vasquez MD [address] [place] [address],[place] [address] 02/28/2022 09:42:00 02/28/2022 10:38:44 Specialized medical examination 65358041 Z01.419 Screening mammography 24 119037 Z12.31 Family his tory of breast cancer 443233379 Z80.3 Postcoital bleeding 4888 0000 N93.0 Skin lesion 11702165 L98 .9 [id number] MD MCKENNA Vasquez MD [address] [place] [address],[place] [address] 03/07/2022 09:24:30 03/07/2022 11:06:57 Mucous polyp of cervix 93555190 N84.1 Postcoital bleeding 4888 0000 N93.0 [id number] MD MCKENNA Vasquez MD [address] [place] [address], [place] [address] 03/20/2022 08:58:26 03/20/2022 12:10:27 Insertion of intrauterine contraceptive device 01448350 Z30.430 [id number] MD MCKENNA Vasquez MD [address] [place] [address],[place] [address] 04/16/2022 14:22:10 04/16/2022 15:43:48 Family history of breast cancer 403990180 Z80.3 Family his tory of cancer of colon 838928107 Z80.0 [id number] MD MCKENNA Vasquez MD [address] [place] [address],[place] [address] 01/08/2023 08:51:39 01/08/2023 12:04:38 Venereal disease screening 228955840 Z11.3 Pain in throat 946143973 R07.0 [id number] MD MCKENNA Vasquez MD [address] [place] [address],[place] [address] 03/01/2023 08:35:33 03/01/2023 09:47:06 Specialized medical examination 19951851 Z01.419 Screening for malignant neoplasm of rectum 447271888 Z12.12 Screening mammography 24 177643 Z12.31 [id number] MD MCKENNA Vasquez MD [address] [place] [address],[place] [address] 08/05/2023 10:21:17 08/05/2023 11:00:18 Candidal vulvovaginitis 93241759 B37.31 Pain of left breast 1010 587785 N64.4 [id number] MD MCKENNA Vasquez MD [address] [place] [address],[place] [address] 10/07/2023 11:38:50 10/07/2023 14:16:09 Venereal disease screening 794442794 Z11.3 Early satiety 028907563 R68.81 Pain in pelvis 14941992 R10.2 [id number] MD MCKENNA Vasquez MD [address] [place] [address],[place] [address] 10/17/2023 14:26:15 10/18/2023 09:54:47 Cyst of left ovary 0469675718 7369216 N83.202 Abdominal pain 56910454 R10.9 [id number] MD MCKENNA Vasquez MD [address] [place] [address],[place] [address] 11/01/2023 13:36:01 11/01/2023 14:24:31 Cyst of left ovary 6319626982 4551173 N83.202 Backache 963768825 M54.9 Pain in pelvis 43006028 R10.2 [id number] MD MCKENNA Vasquez MD [address] [place] [address],[place] [address] 11/27/2023 09:20:41 11/27/2023 10:16:25 Venereal disease screening 531498194 Z11.3 Candidal vulvovaginitis 30381067 B37.31 [id number] MD MCKENNA Vasquez MD [address] [place] [address],[place] [address] 12/05/2023 12:51:50 12/06/2023 07:52:33 Genital Molluscum contagiosum 584118695 B08.1 [id number] MD MCKENNA Vasquez MD [address] [place] [address] [place] [address] 03/11/2024 08:58:47 03/11/2024 10:02:35 Specialized medical examination 36681799 Z01.419 Screening for malignant neoplasm of rectum 160705790 Z12.12 Screening mammography 24 693402 Z12.31 Genital Mo lluscum contagiosum 025136395 B08.1 [id number] MD MCKENNA Vasquez MD [address] [place], [place] [address] [address] 08/20/2024 09:20:50 08/20/2024 12:14:16 Genital Molluscum contagiosum 172483597 B08.1 [id number] MD MCKENNA Vasquez MD [address] [place] [address] [place] [address] 10/02/2024 10:35:56 10/02/2024 11:50:57 Venereal disease screening 737452477 Z11.3 Acute lowe r urinary tract infection 506024342 R30.0 Candidal vulvovaginitis 15392603 B37.31 Pain in pelvis 44843739 R10.2 [id number] MD MCKENNA Vasquez MD [address] [place] [address] [place] [address] 05/18/2025 13:33:32 05/18/2025 14:20:04 Specialized medical examination 89861174 Z01.419 Screening for malignant neoplasm of rectum 153052570 Z12.12 Screening mammography 24 518850 Z12.31 [id number] MD MCKENNA Vasquez MD [address] [place], [place] [address] [address] 06/22/2025 09:25:03 06/22/2025 12:10:05 Cytologic finding 912831759 R87.612 Health Concerns Section Related Observation LastModified by Organization Detai ls LastModified Time None Recorded Concern Status LastModified by Organization Details LastModified Time None Recorded Advance Directives Directive None Recorded Payers Insurance Date Sequence Insurance Name Policy Number Policy Alexis Covered Member ID Alexis Member ID Guarantor Name 08/05/2023 1 [facility] [place] [id number] Josette Iverson [id number] Josette Iverson 06/21/2025 1 [employer] [id number] Josette Iverson [id number] Josette Iverson Notes Date Note Type Note Provider Name and Address Organization Details Recorded Time 03/11/2024 text/html She is here for annual, doing well, she had molluscum treated in 12/14, those resolved but ther are a few new ones, small. Her Kyleena IUD was placed 03/11. Note from 2022: She had a cervical polyp removal last year, and has not had PCB since it was removed. She also had an IUD placement in 03/11. She does not have menses anymore, due to the IUD. Mckenna Benitez MD [address], [place], [address], [place] - [facility], 03/11/2024 09:23:26 08/20/2024 text/html She is here requesting TCA treatment for molluscum. She notes the lesions have been there for several months and getting larger and more numerous. She had stopped shaving but it did not help. she had been treated for molluscum in the past with good results, with TCA. Mckenna Benitez MD [address], [place], [address], [place] - [facility], 08/20/2024 10:23:36 10/02/2024 text/html She is here for a complaint of a yellow and green vaginal discharge for a few days. LMP was 09/09/24, she has an IUD. She is on antibiotics for a tooth abscess. She also noted midline intermittent cramping pain. Mckenna Benitez MD [address], [place], [address], [place] - [facility], 10/02/2024 11:12:06 05/18/2025 text/html She is here for annual, doing well, no menses due to Kyleena IUD placed 03/11 and good until 02/2027. She has some vasomotor symptoms noted. Still has rare molluscum, small. Note from 2023: She is here for annual, doing well, she had molluscum treated in 12/14, those resolved but ther are a few new ones, small.Her Kyleena IUD was placed 03/11. Mckenna Benitez MD [address], [place], [address], [place] - [facility], 05/18/2025 14:03:40 06/22/2025 text/html She is here for colpo for ASCUS with positive HPV HR, she has an IUD in situ. she had the onset of molluscum last year. Her partner likely had another partner. Note from 04/2025: She is here for annual, doing well, no menses due to Kyleena IUD placed 03/11 and good until 02/2027.She has some vasomotor symptoms noted.Still has rare molluscum, small. Mckenna Benitez MD [address], [place], [address], [place] - [facility], 06/22/2025 09:57:53 OBGyn Episode No OBEpisode recorded.
--- OUTSIDE RECORDS SUMMARY | 2025-08-15 07:30 | XMS_ITS | Clinical Summary ---
Author Organization [address] Address [address] [place] [address] Phone Care Team Providers Care Sql Database Developer Name Role Phone Matti Siddiqui MD Primary Care Provider [phone] Surgical History Surgery Date Site/Laterality Comments OTHER SURGICAL HISTORY 08/21/2014 PROCEDURE: MAMMOGRAM OTHER SURGICAL HISTORY 08/21/2014 PROCEDURE: [place] BIOPSY THYROID PERCUTANEOUS CORE NEEDLE; COMMENT: benign MULTIPLE TOOTH EXTRACTIONS PROCEDURE: HISTORICAL DENTAL EXTRACTION BREAST BIOPSY 2019 Right PROCEDURE: BX BREAST; PERC NEEDLE CORE W/IMAG GUID Medical History Medical History Date Comments Migraine 09/07/2008 DX:Migraine Anxiety 09/07/2008 DX:Anxiety Helicobacter pylori infection 06/16/2010 DX :Helicobacter pylori infection Family History Medical History Relation Name Comments Other: migraine Maternal Grandmother Hypertension Mother Multiple sclerosis Mother Breast cancer Mother's side mother's twin dx in her 50's Breast cancer Other -dxd 50s aunt Colon cancer Neg Hx Ovarian cancer Neg Hx Relation Name Status Comments Maternal Grandmother Mother Mother's side Other -dxd 50s aunt Alive Social History Tobacco Use Types Packs/Day Years Used Date Smoking Tobacco: Former Cigarettes Q uit: 09/20/2002 Smokeless Tobacco: Never Alcohol Use Standard Drinks/Week Comments Yes 0 (1 standard drink = 0.6 oz pur e alcohol) Comments Unknown Sex and Gender Information Value Date Recorded Sex Assigned at Not on file Legal Sex Female 8:47 AM EST Gender Identity Not on file Sexual Orientation Not on file Obstetrics History Para Term AB IAB SAB Ectopic Multiple Livin g Live Births Date Outcome GA Total Labor Labor/2nd/3rd Weight Sex Type Anes PTL Angie A1 A5 Name Clin Term Plan of Treatment Upcoming Encounters Date Type Department Care Team (Late st Contact Info) Description 11/03/2025 4:30 PM EST Appointment Radiology Department - [address] [phone] Health Maintenance Due Date Last Done Comments Colorectal Cancer Screening: Colonoscopy 1976 Hepatitis B Vaccines (1 of 3 - 19+ 3-dose series) 1995 Cervical Cancer Screening: Pap Smear 1997 Cholesterol Screening (Lipid Panel) 09/29/2022 HIV Screening 09/29/2022 Hepatitis C Screening 09/29/2022 Social Influencers of Health Screening 09/29/2022 Depression Screening 10/21/2024 Hypertension/CHF/CAD Annual BMP Blood Test 10/30/2024 COVID-19 Vaccine ( season) 2025 12/05/2021, 03/07/2021, 11/27/2020, Additional history exists Influenza Vaccine (#1) 2025 3, 09/26/2022, 07/31/2022, Additional history exists Breast Cancer Screening 10/30/2026 10/30/19, 10/18/2023, 10/10/2022, Additional history exists DTaP,Tdap,and Td Vaccines (3 - Td or Tdap) 07/26/2030 07/26/2020, 06/14/2010 RSV Immunization Adult Patients (1 - 1-dose 75+ series) 2051 Pneumococcal Vaccine: Pediatrics (0 to 5 Years) and At-Risk Patients (6 to 49 Years) Completed 10/24/2023, 08/30/2014 HIB Vaccines Aged Out No longer eligi ble based on patient's age to complete this topic HPV Vaccines Aged Out No longer eligi ble based on patient's age to complete this topic Hepatitis A Vaccines Aged Out No long er eligible based on patient's age to complete this topic IPV Vaccines Aged Out No longer eligi ble based on patient's age to complete this topic MMR Vaccines Aged Out No longer eligi ble based on patient's age to complete this topic Meningococcal ACWY Vaccine Aged Out N o longer eligible based on patient's age to complete this topic Meningococcal B Vaccine Aged Out No l onger eligible based on patient's age to complete this topic RSV Immunization Patients Under 20 months Aged Out No longer eligible based on patient's age to complete this topic Varicella Vaccines Aged Out No longer eligible based on patient's age to complete this topic Procedures Procedure Name Priority Date/Time Associated Diagnosis Comments MG MAMMO DIGITAL SCREENING W ZACARIAS BILAT Routine 10/30/2024 11:05 AM EST Encounter for screening mammogram for breast cancer from Last 3 Months or Most Recently Relevant to Health Maintenance Results * MG Mammo Digital Screening w Zacarias bilat (10/30/2024 11:05 AM EST) Anatomical Region Laterality Modality Breast Bilateral Mammography 10/30/2024 5:59 PM EST Impressions 10/30/2024 6:01 PM EST No mammographic evidence of malignancy. BREAST DENSITY: B - There are scattered areas of fibroglandular density. BI-RADS CATEGORY: 1 - NEGATIVE RECOMMENDATION: Screening bilateral mammogram is recommended in 1 year. MAMMO LOCATION: [facility], [address] [place] [address], [id number], . -------- FINAL REPORT -------- Dictated By: Shelbie Kumar Dictated Date: 10/30/2024 17:59 ET Assigned Physician: Shelbie Kumar Reviewed and Electronically Signed By: Shelbie Kumar Signed Date: 10/30/2024 18:01 ET Workstation ID: [id number] Transcribed By: Self Edit Transcribed Date: 10/30/2024 17:59 ET Narrative 10/30/2024 6:01 PM EST EXAM: Screening Mammogram CLINICAL: 49 years old, Female, routine annual exam. 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 COMPARISON: 10/18/2023 and as far back as 09/03/2020 TECHNIQUE: Bilateral MLO and CC views were obtained digitally with 3-D mammogram (digital breast tomosynthesis). Computer-aided detection was utilized in evaluation of this exam (CAD). FINDINGS: No new suspicious mass, architectural distortion, or suspicious calcifications. Procedure Note Shelbie Kumar MD - 10/30/2024 EXAM: Screening Mammogram CLINICAL: 49 years old, Female, routine annual exam. History of a benignright core biopsy 09/20/2020-fibroadenoma. COMPARISON: 10/18/2023 and as far back as 09/03/2020 TECHNIQUE: Bilateral MLO and CC views were obtained digitally with 3-Dmammogram (digital breast tomosynthesis). Computer-aided detection wasutilized in evaluation of this exam (CAD). FINDINGS: No new suspicious mass, architectural distortion, or suspiciouscalcifications. IMPRESSION: No mammographic evidence of malignancy. BREAST DENSITY: B - There are scattered areas of fibroglandular density. BI-RADS CATEGORY: 1 - NEGATIVE RECOMMENDATION: Screening bilateral mammogram is recommended in 1 year. MAMMO LOCATION: [facility], [address] [place] [address], [id number], . -------- FINAL REPORT -------- Dictated By: Shelbie Kumar Dictated Date: 10/30/2024 17:59 ET Assigned Physician: Shelbie Kumar Reviewed and Electronically Signed By: Shelbie Kumar Signed Date: 10/30/2024 18:01 ET Workstation ID: [id number] Transcribed By: Self Edit Transcribed Date: 10/30/2024 17:59 ET us Self Referral [facility] IMG BI PROCEDURES Final Resu lt from Last 3 Months or Most Recently Relevant to Health Maintenance Insurance [employer] Care Teams Sql Database Developer Relationship Specialty Start Date End Date [place], Matti, MD [address] [place] [id number] PCP - General Internal Medicine 08/21/16
[2025-08-15 07:32] LABS: Appearance Urine Clear; Glucose Urine UA Negative (Negative); PH 6.5 (5.0-9.0); Specific Gravity - Urine 1.025 (1.005-1.025); UMIC TRIGGER UACC YES
[2025-08-15 07:34] LABS: UPreg QC Valid YES
[2025-08-15 07:37] LABS: Hematocrit 44.4 % (37.0-47.0); Hemoglobin 14.8 g/dl (12.0-16.0); Imm Gran Abs Auto 0.01 X10*3/uL (0.00-0.03); Imm Gran Pct Auto 0.1 % (0.0-0.4); Lymphocytes Absolute Auto 1.9 X10*3/uL (1.2-4.9); Mean Corpuscular HGB Conc 33.3 g/dl (31.0-35.0); Mean Corpuscular Hemoglobin 30.5 pg (27.0-33.0); Mean Corpuscular Volume 91.5 fL (80.0-98.0); NRBC Abs Auto 0.000 X10*3/uL (0.0-0.012); NRBC Pct Auto 0.0 /100WBC (0.0-0.2); Platelet Count 406 X10*3/uL (160-400); Red Blood Count 4.85 X10*6/uL (4.20-5.50); White Blood Count 7.3 X10*3/uL (4.8-10.8)
[2025-08-15 07:38] LABS: UACC Culture Trigger YES
[2025-08-15 07:48] LABS: Alanine Aminotransferase 15 U/L (0-31); Albumin Level 4.2 g/dL (3.5-5.0); Alkaline Phosphatase 48 U/L (39-117); Anion Gap 12 (12-20); Aspartate Amino Transferase 23 U/L (5-31); Blood Urea Nitrogen 8 mg/dL (9-16); Calcium 9.1 mg/dL (8.4-10.2); Carbon Dioxide 24 mmol/L (22-29); Chloride 109 mmol/L (96-108); Creatinine Clr Calc Pharmacy 69.1; Estimated Glomerular Filt Rate > 60; Potassium 3.7 mmol/L (3.3-5.1); Sodium 141 mmol/L (135-145); Total Protein 7.3 g/dL (6.5-8.0)
--- NOTE | 2025-08-15 07:57 | ED.ABDPAIN ---
HPI - Abdominal Pain General Chief Complaint: Abdominal Pain Stated Complaint: Lower Abdominal Pain Time Seen by Provider: 08/15/25 07:56 Source: patient and RN notes reviewed Mode of arrival: ambulatory Limitations: no limitations History of Present Illness ED Provider: Sury Paul PA-C HPI narrative: This is a 50-rfsy-rnp-female, with a hx of migraines, thyroidectomy in 2023, HTN, fibromyalgia, HPV being closely monitor by OBGYN, anxiety, GERD, who presents emergency department with concerns of ongoing right-sided abdominal pain for the last 2-3 weeks. Patient states that over the last 24-48 hours her pain has worsened significantly. She describes his pain as a constant, waxing and waning pain. She states that she also has had urinary frequency and urgency. She states that she followed up with her primary care where they performed an abdominal CT scan without IV contrast which revealed no stone. She had no diagnosis appreciated. She states that she has an IUD. Denies chance of . She is not sexually active. Denies any abnormal vaginal discharge or bleeding. She states that she has been taking ibuprofen, last dose was yesterday which provided her with minimal relief. Denies history of any abdominal surgeries in the past. No other complaints or concerns at this time. MD elicited complaint: abdominal pain Pain Consistency: constant Location: none Quality: aching Radiation: R flank Migration to: no migration Exacerbating factors: nothing Relieving factors: nothing Associated symptoms: nausea Related Data Home Medications ?Medication ?Instructions ?Recorded ?Confirmed amitriptyline 100 mg tablet 100 mg PO BEDTIME 05/25/23 econazole nitrate 1 % topical cream appl topical BID 05/25/23 escitalopram oxalate 10 mg tablet 10 mg PO DAILY 05/25/23 ferrous sulfate 325 mg (65 mg 325 mg PO DAILY 05/25/23 iron) tablet,delayed release hydroxyzine HCl 25 mg tablet 25 mg PO QID 05/25/23 lisinopril 2.5 mg tablet 2.5 mg PO DAILY 05/25/23 loratadine 10 mg tablet 10 mg PO DAILY 05/25/23 magnesium oxide 400 mg (241.3 mg 400 mg PO DAILY 05/25/23 magnesium) tablet minoxidil 2.5 mg tablet 1.25 mg PO DAILY 05/25/23 omeprazole 40 mg capsule,delayed 40 mg PO DAILY 05/25/23 release ondansetron HCl 4 mg tablet 4 mg PO Q8H PRN nausea 05/25/23 sumatriptan succinate 100 mg tablet 0 mg PO 05/25/23 topiramate 50 mg tablet 50 mg PO BID 05/25/23 vitamin B complex 1 cap PO DAILY 05/25/23 Previous Rx's ?Medication ?Instructions ?Recorded penicillin V potassium 500 mg 500 mg PO BID #14 tabs 05/25/23 tablet [id number]-nwltrdqayrpmt-sufpbbnv 1 tab PO Q6H PRN haeadace #20 tabs 01/07/25 50 mg-325 mg-40 mg tablet cefpodoxime 200 mg tablet 200 mg PO BID 10 days #20 tabs 08/15/25 Allergies Allergy/AdvReac Type Severity Reaction Status Date / Time No Known Allergies Allergy Verified 08/15/25 07:09 Review of Systems Review of Systems Constitutional : No Fever, No Chills ENT/Mouth : No sore throat, No Rhinorrhea Eyes: No Eye Pain, No Swelling, No Redness Cardiovascular : No Chest Pain, No SOB Respiratory : No Cough, No Sputum Gastrointestinal : + Nausea, No Vomiting, No Diarrhea, + abdominal Pain Genitourinary : No Dysuria, No Hematuria Musculoskeletal : No joint pain, No Myalgias, No Joint Swelling Skin : No Skin Lesions Neuro : No Weakness, No Numbness, No Headache All other systems reviewed and are negative Yes all other systems are reviewed and are negative Constitutional: Reports as per [facility] Social History Social History Patient Tobacco Use Status: Never used Tobacco Substance Use Type: Marijuana Physical Exam ED Vital Signs: Vital Signs - 24 hr 08/15/25 07:07 08/15/25 10:05 08/15/25 10:59 Temperature 97.6 F Pulse Rate 88 66 61 Respiratory Rate 18 Blood Pressure 188/98 H 157/102 H 147/90 H Pulse Oximetry 100 Oxygen Delivery Method Room Air 08/15/25 11:48 Temperature 98.2 F Pulse Rate 61 Respiratory Rate 16 Blood Pressure 147/90 H Pulse Oximetry 99 Oxygen Delivery Method Room Air BMI result Body Mass Index 22.3 Const General: cooperative, comfortable and no acute distress Orientation/consciousness: patient oriented x3 Limitations: no limitations HENMT Head: Yes normal to inspection, Yes normocephalic and Yes atraumatic Ears: hearing grossly normal bilaterally General nose exam: Normal external nose present Face and sinus: Yes normal facial exam Mouth: Normal oral and palatal mucosa present, oropharynx normal and moist mucous membranes Throat: Yes posterior oropharynx normal Eyes General: appearance normal, both eyes and all related structures Eyelids: Yes eyelids normal Conjunctivae: conjunctivae normal Sclerae: sclerae normal Pupils: Equal, round and reactive pupils present EOM: EOMs intact bilaterally Neck Neck: Yes normal visual inspection, Yes full ROM and Yes no lymphadenopathy Lymphatic: no lymphadenopathy noted Chest Chest palpation & inspection: normal inspection of the chest Resp Effort & Inspection: normal respiratory effort and able to speak in complete sentences Auscultation: clear to auscultation bilaterally, no crackles, no rales, no rhonchi and no wheezes Cardio Rate: regular rate Rhythm: regular rhythm Heart sounds: S1 normal heart sound present and S2 normal heart sound present GI Other: Abdomen is soft, with tenderness palpation in the right lower quadrant extending into the right flank. No rebound or guarding. Normoactive bowel sounds present. Inspection: Yes normal to inspection Other: Mild right-sided CVA tenderness. Skin General skin exam: no rashes or lesions noted Trauma: no lacerations or abrasions Wounds: no wounds Neuro General: patient oriented x3 and moves all extremities Cranial nerves: Yes Equal, round and reactive pupils present Extrem General: Yes normal to inspection Right upper extremity: normal to inspection Left upper extremity: normal to inspection Right lower extremity: normal to inspection Left lower extremity: normal to inspection Medical Decision Making Medical Decision Making MDM Narrative: This is a 50-year-old female, with a past medical history of GERD, anxiety, hypertension, fibromyalgia, migraines, and HPV currently being followed by OBGYN, who presents emergency department with concerns of ongoing right lower abdominal pain in extending into the right flank for the last 2-3 weeks. On arrival, patient is hypertensive at 188/98. She admits that she has not been taking her blood pressure medication over the last 3-4 days given her symptoms. Denies taking any medications at home to treat her current pain today. She had a CT abdomen and pelvis without contrast which I reviewed on her phone which revealed no acute process. Abdomen is soft however she does have tenderness palpation along the right lower quadrant, periumbilical region extending into the right flank. Differential diagnoses include pyelonephritis, appendicitis, acute cystitis, renal colic. Given that she had a normal CT without contrast 2 days ago, will obtain CT with contrast to rule out any other acute abdominal process. Labs were obtained prior to my evaluation, she has no leukocytosis, stable H&H, chemistry revealing no significant electrolyte derangement. Urine with small blood, small leuk esterases, rbc's and wbc's however sample appears to be contaminated. 8:18 AM 08/15/2025 (Sury Paul PA-C): Will medicate with IV Zofran, IV Toradol, and obtain CT abdomen and pelvis with IV contrast. 9:56 AM 08/15/2025 (Sury Paul PA-C): Patient re-evaluated, still having pain, will treat with IV Tylenol. Awaiting CT report. 11:17 AM 08/15/2025 (Sury Paul PA-C): CT revealing no acute process, normal appendix, no obstructive uropathy. Patient's overall workup today was reassuring. Urine does appear to be contaminated however does have bacteria, and she is symptomatic therefore will treat as a urinary tract infection. Discussed strict return precautions. She will follow-up with her primary care physician. Patient understands and agrees with plan. Patient stable for discharge. Differential Diagnosis Differential Diagnoses: The differential diagnosis associated with the presentation includes See above Lab Data [facility] Lab Attestation statement: I reviewed the patient's lab results. See MDM and course 08/15/25 07:22 08/15/25 07:22 Labs: Lab Results 08/15/25 Range/Units 07:22 WBC 7.3 (4.8-10.8) X10*3/uL RBC 4.85 (4.20-5.50) X10*6/uL Hgb 14.8 (12.0-16.0) g/dl Hct 44.4 (37.0-47.0) % MCV 91.5 (80.0-98.0) fL MCH 30.5 (27.0-33.0) pg MCHC 33.3 (31.0-35.0) g/dl RDW 11.4 (11.0-16.0) % Plt Count 406 H (160-400) X10*3/uL MPV 9.3 L (9.4-12.3) fL Immature Gran % (Auto) 0.1 (0.0-0.4) % Neut % (Auto) 59.4 (45-73) % Lymph % (Auto) 25.5 (20-40) % [place] % (Auto) 11.0 (2-11) % Eos % (Auto) 3.0 (0-4) % Baso % (Auto) 1.0 (0-2) % Lymph # (Auto) 1.9 (1.2-4.9) X10*3/uL [place] # (Auto) 0.8 (0.1-1.2) X10*3/uL Eos # (Auto) 0.2 (0.0-0.4) X10*3/uL Baso # (Auto) 0.1 (0.0-0.2) X10*3/uL Abs Immat Gran (auto) 0.01 (0.00-0.03) X10*3/uL Absolute Neuts (auto) 4.3 (2.0-8.3) x10*3/uL Absolute Nucleated RBC 0.000 (0.0-0.012) X10*3/uL Nucleated RBC % (auto) 0.0 (0.0-0.2) /100WBC Sodium 141 (135-145) mmol/L Potassium 3.7 (3.3-5.1) mmol/L Chloride 109 H (96-108) mmol/L Carbon Dioxide 24 (22-29) mmol/L Anion Gap 12 (12-20) BUN 8 L (9-16) mg/dL Creatinine 0.85 (0.5-1.4) mg/dL Estim Creat Clear Calc 69.1 Estimated GFR > 60 Random Glucose 91 (60-115) mg/dL Calcium 9.1 (8.4-10.2) mg/dL Total Bilirubin 0.4 (0.0-1.0) mg/dL AST 23 (5-31) U/L ALT 15 (0-31) U/L Alkaline Phosphatase 48 (39-117) U/L Total Protein 7.3 (6.5-8.0) g/dL Albumin 4.2 (3.5-5.0) g/dL Urine Color Yellow Urine Appearance Clear Urine pH 6.5 (5.0-9.0) Ur Specific [place] 1.025 (1.005-1.025) Urine Protein Trace (Neg-Trace) mg/dL Urine Glucose (UA) Negative (Negative) mg/dL Urine Ketones Negative (Negative) mg/dL Urine Blood Small (1+) H (Negative) Urine Nitrite Negative (Negative) Ur Leukocyte Esterase Small (1+) H (Negative) Urine RBC 11-20 H (0-2) /HPF Urine WBC 6-10 H (0-5) /HPF Ur Squamous Epith Cells 11-20 (0-2) /HPF Urine Bacteria 3+ (None Seen) Hyaline Casts 0-2 (0-2) /LPF Urine Test NEGATIVE (NEGATIVE) Radiology Impression Discussion of test interpretation with radiology: I have reviewed the radiologist's reading. Radiologist Impression: Findings: The lung bases are clear. There is a hepatic cysts within segment 6. The gallbladder, spleen, adrenal glands and pancreas are unremarkable. Kidneys, ureters and bladder are normal. Well-positioned IUD. The uterus and adnexa are unremarkable. Normal appendix. No bowel obstruction or free air. No acute osseous finding. Impression: No definite acute process. Normal appendix. No obstructive uropathy. This document has been electronically signed by: Heladio Mario MD on 08/15/2025 10:50:55 Dictated By: Heladio Mario MD Medications Administered Discontinued Medications Generic Name Dose Route Start Last Admin Trade Name Freq PRN Reason Stop Dose Admin Sodium Chloride 1,000 mls @ 999 mls/hr 08/15/25 08:12 08/15/25 09:45 Ns IV 08/15/25 09:12 Infused .Q1H1M ONE Infusion Acetaminophen 1,000 mg in 100 mls @ 400 mls/hr 08/15/25 09:55 08/15/25 10:20 Ofirmev IV 08/15/25 10:09 Infused ONCE ONE Infusion Iohexol 100 ml 08/15/25 09:08 08/15/25 09:08 Iohexol 350 Mg/Ml 100 Ml Infus..Btl IV 08/15/25 09:09 85 ml ONCE ONE Administration Ketorolac Tromethamine 15 mg 08/15/25 08:12 08/15/25 08:31 Ketorolac Tromethamine 15 Mg/Ml Vial IVPUSH 10/26/25 08:13 15 mg ONCE ONE Administration Ondansetron HCl 4 mg 08/15/25 08:12 08/15/25 08:31 Ondansetron Hcl 4 Mg/2 Ml Vial IVPUSH 08/15/25 08:13 4 mg ONCE ONE Administration Discharge Plan Discharge Clinical Impression: Cystitis, Abdominal pain Patient Disposition: Home, Self-Care Instructions: Urinary Tract Infection in Women (ED), Abdominal Pain (ED) Additional Instructions: You were seen in the emergency department with concerns of right-sided flank pain. Your overall workup today was reassuring. Your urine does show blood and white blood cells along with some bacteria. There are some squamous cells present, which indicates a contaminated urine sample - typically caused by your normal skin cells from the collection process. A CT scan did not show any reason for your abdominal pain. Of note, you do have hepatic cyst, this is very common - please inform your primary care to add to your medical record. Given your symptoms, you may have a urinary tract infection therefore we are treating you with an antibiotic. Please take full course of antibiotics even if your symptoms improve. We are sending your urine out for further testing, we will call you if there are any abnormal results or may need to switch your antibiotic. I encouraged you to follow-up with your primary care physician, call tomorrow to make an appointment. If any new or worsening symptoms occur including but not limited to worsening pain, high fevers, vomiting, chest pain, shortness of breath, please seek emergent care. Prescriptions: New cefpodoxime 200 mg tablet 200 mg PO BID 10 Days Qty: 20 0RF Rx Instructions: must administer with a meal/food No Action [id number]-[id number]-[id number] 50-325-40 mg tablet 1 tab PO Q6H PRN (Reason: haeadace) Qty: 20 0RF ferrous sulfate 325 mg (65 mg iron) tablet,delayed release (DR/EC) 325 mg PO DAILY minoxidil 2.5 mg tablet 1.25 mg PO DAILY loratadine 10 mg tablet 10 mg PO DAILY sumatriptan succinate 100 mg tablet 0 mg PO omeprazole 40 mg capsule,delayed release(DR/EC) 40 mg PO DAILY hydroxyzine HCl 25 mg tablet 25 mg PO QID magnesium oxide 400 mg (241.3 mg magnesium) tablet 400 mg PO DAILY vitamin B complex Capsule 1 cap PO DAILY lisinopril 2.5 mg tablet 2.5 mg PO DAILY topiramate 50 mg tablet 50 mg PO BID escitalopram oxalate 10 mg tablet 10 mg PO DAILY amitriptyline 100 mg tablet 100 mg PO BEDTIME ondansetron HCl 4 mg tablet 4 mg PO Q8H PRN (Reason: nausea) econazole nitrate 1 % cream topical BID penicillin V potassium 500 mg tablet 500 mg PO BID Qty: 14 0RF Stand Alone Forms: Work/School Release Interventions: ED Discharge Assessment Last Done: 08/15/25 11:48 Discharge Date/Time: 08/15/25 11:50 Print Language: [place]an
[2025-08-15] MEDS: iohexoL 350 MG/ML 100 ML INFUS..BTL IV (09:08)
[2025-08-15 10:05] VITALS: BP 157/102; PULSE 66
[2025-08-15 10:59] VITALS: BP 147/90; PULSE 61
[2025-08-15 11:48] VITALS: BP 147/90; PULSE 61; RESP 16; TEMP 36.8; O2SAT 99
== END 2025-08-15 11:50 | disposition home or self-care (01) ==
PROVIDERS: Emergency Provider Emergency Medicine Emergency Medical Services; PCP Internal Medicine
DX: R10.A1 Flank pain, right side (principal); R11.0 Nausea; R10.31 Right lower quadrant pain; Z79.899 Other long term (current) drug therapy
CPT/HCPCS: 36415; 74177; 80053; 81001; 81025; 85025; 87086; 96361; 96365; 96375; 99285; J0131; J1885; J2405; Q9967

== ENCOUNTER → 2025-08-15 08:12 | Outpatient (BNV) | payer OTHER, SELFPAY | PROVIDERS: Emergency Provider Emergency Medicine Emergency Medical Services; PCP Internal Medicine; Visit Provider Radiology Vascular & Interventional Radiology | DX: R10.31 Right lower quadrant pain (principal); R10.A1 Flank pain, right side | CPT/HCPCS: 74177 ==